=== PATIENT | female | born 1995 | race Caucasian/White ===

== ENCOUNTER 2018-11-17 14:44 | Emergency (ER) | payer SELFPAY ==
[2018-11-17 15:07] VITALS: BP 141/105
[2018-11-17] MEDS ORDERED: LIDOCAINE 2%/EPI 1:100,000 20 ML VIAL. ONE (15:09)
[2018-11-17] MEDS ORDERED: CLINDAMYCIN HCL 150 MG CAPSULE ONE (15:09)
--- NOTE | 2018-11-17 15:12 | PHYS DOC ---
Past History Past Medical History: No Pertinent History Past Surgical History: Other Smoking: Non-smoker Alcohol Use: Occasionally Drug Use: None Adult General Chief Complaint Chief Complaint: SKIN PROBLEM HPI HPI 23-year-old female presents with swelling and tenderness to right inner mid thigh which is been ongoing for the past 3 weeks. Patient reports symptoms have become worse. Denies any fever or chills. Denies known trauma. Denies . Review of Systems Review of Systems Constitutional: Denies fever or chills Eyes: Denies redness or eye pain HENT: Denies nasal congestion or sore throat Respiratory: Denies cough or shortness of breath Cardiovascular: Denies chest pain or palpitations GI: Denies abdominal pain, nausea, or vomiting : Denies dysuria or hematuria Musculoskeletal: Denies back pain or joint pain Integument: Reports right medial thigh swelling, tenderness, and erythema Neurologic: Denies headache, focal weakness or sensory changes Complete systems were reviewed and found to be within normal limits, except as documented in this note. Current Medications Current Medications Current Medications Medications (Trade) Dose Ordered Sig/Leda Start Time Stop Time Status Last Admin Dose Admin Clindamycin HCl (Cleocin) 300 mg 1X ONCE 11/17/18 15:15 11/17/18 15:16 UNV Lidocaine/ Epinephrine (Xylocaine 2%-Epi 1:100,000) 20 ml 1X ONCE 11/17/18 15:15 11/17/18 15:16 UNV Allergies Allergies Allergies Coded Allergies Type Severity Reaction Last Updated Verified No Known Drug Allergies 11/17/18 No Physical Exam Physical Exam Constitutional: Well developed, well nourished, no acute distress, non-toxic appearance HENT: Normocephalic, atraumatic, oropharynx moist Eyes: Conjunctiva normal, no discharge Neck: Normal range of motion, supple Cardiovascular: Heart rate normal, regular rhythm Lungs & Thorax: No respiratory distress Skin: Warm, dry, 3cm fluctuance noted to right medial mid thigh with surrounding erythema Extremities: ROM intact, RLE distal pulses and sensation intact Neurologic: Alert and oriented X 3, no focal deficits noted Psychologic: Affect normal, judgement normal Current Patient Data Vital Signs Vital Signs Date Time Temp Pulse Resp B/P (MAP) Pulse Ox O2 Delivery O2 Flow Rate FiO2 11/17/18 15:02 98.2 94 14 141/105 (117) 100 Room Air EKG EKG [] Radiology/Procedures Radiology/Procedures [] Course & Med Decision Making Course & Med Decision Making Patient presents with history of present illness and physical exam consistent for abscess to right medial thigh. I&D performed with iodoform packing placement. Empiric antibiotics initiated. Patient stable for discharge with outpatient follow-up with PCP. Discussed findings and plan with patient and family, who acknowledge understanding and agreement. Dragon Disclaimer Dragon Disclaimer This electronic medical record was generated, in whole or in part, using a voice recognition dictation system. Incision and Drainage Incision and Drainage : Site: right medial thigh Blade Size: 11 I & D Procedure: sterile dressing applied, gauze wick placed (half-inch iodoform gauze) Progress Verbal consent obtained. Time out performed. Hand hygiene utilized. Wound cleaned with ChloraPrep. Anesthesia obtained via a 25-gauge hypodermic needle with (3) mL's of lidocaine 2% with epinephrine. Horizontal incision 1.5cm performed with 11 blade scalpel to middle of fluctuance with immediate purulent discharge noted. Wound explored with curved Deepika clamp. Copious irrigation performed x 200mls. Iodoform gauze packed. Wound dressed with sterile dressing Patient tolerated procedure well and without difficulty. Departure Departure: Impression: Primary Impression: Abscess of right thigh Disposition: HOME, SELF-CARE Condition: STABLE Referrals: PCP,NO (PCP) Patient Instructions: Abscess, Care After Additional Instructions: Do not soak your wound. You may shower. Clean wound daily with soap and water. Change dressing 2 times daily. Use over the counter antibiotic ointment with each dressing change. Scripts Clindamycin Hcl (CLINDAMYCIN HCL) 300 Mg Capsule 1 CAP PO TID for infection for 7 Days, #21 CAP Prov: AIME NIETO DO 11/17/18 AIME NIETO DO Nov 17, 2018 15:12
[2018-11-17] MEDS ORDERED: CLINDAMYCIN HCL 150 MG CAPSULE PO ONE (15:30)
[2018-11-17] MEDS ORDERED: LIDOCAINE 2%/EPI 1:100,000 20 ML VIAL. IJ ONE (15:30)
[2018-11-17] MEDS ORDERED: CLIN300C8 PO (15:34)
== END 2018-11-17 15:40 | disposition home or self-care (01) ==
LOC: ER 14:44
DX: L02.415 Cutaneous abscess of right lower limb (principal)
CPT/HCPCS: 10060; 99283

== ENCOUNTER 2018-11-18 15:19 | Emergency (ER) | payer SELFPAY ==
[~2018-11-18] VITALS: Ht 170.2 cm; Wt 98.9 kg
[~2018-11-18 15:19] MED LIST: CLIN300C8 PO
[2018-11-18 15:35] VITALS: BP 143/89
--- NOTE | 2018-11-18 15:42 | PHYS DOC ---
Past History Past Medical History: No Pertinent History Past Surgical History: Other Smoking: Non-smoker Alcohol Use: Occasionally Drug Use: None Adult General Chief Complaint Chief Complaint: WOUND CHECK [facility] HPI Patient is a [age] year old [sex] who presents with [] Review of Systems Review of Systems Constitutional: Denies fever or chills [] Eyes: Denies change in visual acuity, redness, or eye pain [] HENT: Denies nasal congestion or sore throat [] Respiratory: Denies cough or shortness of breath [] Cardiovascular: No additional information not addressed in HPI [] GI: Denies abdominal pain, nausea, vomiting, bloody stools or diarrhea [] : Denies dysuria or hematuria [] Musculoskeletal: Denies back pain or joint pain [] Integument: Denies rash or skin lesions [] Neurologic: Denies headache, focal weakness or sensory changes [] Endocrine: Denies polyuria or polydipsia [] All other systems were reviewed and found to be within normal limits, except as documented in this note. Allergies Allergies Allergies Coded Allergies Type Severity Reaction Last Updated Verified No Known Drug Allergies 11/17/18 No Physical Exam Physical Exam Constitutional: Well developed, well nourished, no acute distress, non-toxic appearance. [] HENT: Normocephalic, atraumatic, bilateral external ears normal, oropharynx moist, no oral exudates, nose normal. [] Eyes: PERRLA, EOMI, conjunctiva normal, no discharge. [] Neck: Normal range of motion, no tenderness, supple, no stridor. [] Cardiovascular:Heart rate regular rhythm, no murmur [] Lungs & Thorax: Bilateral breath sounds clear to auscultation [] Abdomen: Bowel sounds normal, soft, no tenderness, no masses, no pulsatile masses. [] Skin: Warm, dry, no erythema, no rash. [] Back: No tenderness, no CVA tenderness. [] Extremities: No tenderness, no cyanosis, no clubbing, ROM intact, no edema. [] Neurologic: Alert and oriented X 3, normal motor function, normal sensory function, no focal deficits noted. [] Psychologic: Affect normal, judgement normal, mood normal. [] EKG EKG [] Radiology/Procedures Radiology/Procedures [] Course & Med Decision Making Course & Med Decision Making Pertinent Labs and Imaging studies reviewed. (See chart for details) [] Dragon Disclaimer Dragon Disclaimer This electronic medical record was generated, in whole or in part, using a voice recognition dictation system. Departure Departure: Impression: Primary Impression: Encounter for abscess packing removal Disposition: HOME, SELF-CARE Condition: STABLE Referrals: PCP,NO (PCP) Patient Instructions: Abscess, Care After Additional Instructions: Continue to use previously prescribed antibiotics as directed Use over the counter Tylenol and Ibuprofen for pain and discomfort. Do not soak your wound. You may shower. Clean wound daily with soap and water. Change dressing 2 times daily. Use over the counter antibiotic ointment with each dressing change. AIME NIETO DO Nov 18, 2018 15:42
[2018-11-18] MEDS ORDERED: NEOMY/BACITR/POLYMYXIN OINT PACKET. TP ONE (15:45)
== END 2018-11-18 16:00 | disposition home or self-care (01) ==
LOC: ER 15:19
DX: Z48.01 Encounter for change or removal of surgical wound dressing (principal); L02.416 Cutaneous abscess of left lower limb
CPT/HCPCS: 99281

== ENCOUNTER 2020-11-11 09:38 | Emergency (ER) | payer SELFPAY ==
[~2020-11-11] VITALS: Ht 165.1 cm; Wt 97.9 kg
[~2020-11-11 09:38] MED LIST changes: +CLIN-95 PO; -CLIN300C8 PO
--- NOTE | 2020-11-11 10:33 | PHYS DOC ---
Past History Past Medical History: No Pertinent History (RADHA GREENE) Past Surgical History: Other Additional Past Surgical Histo: l shoulder (RADHA GREENE) Smoking: Non-smoker Alcohol Use: Occasionally Drug Use: None (RADHA GREENE) General Adult EDM: Chief Complaint: VAGINAL BLEEDING HPI: HPI: Patient is a 25 year old female A0 who presents with vaginal bleeding that began last night. Patient states she had 3+ tests 2 weeks ago, but began having heavy vaginal bleeding last night. Patient states that she has filled a tampon every hour since onset. Patient reports associated pelvic cramping 06/14. Patient is in a monogamous relationship with her , whom she has been to for 3 years. She denies history of STIs including gonorrhea, chlamydia, syphilis, herpes. After her bleeding began, patient states that she did take a Benadryl at about 2300 last night in order to get to sleep. She has not been to her broom builder yet to confirm . Patient denies lateralized pelvic pain, sudden onset of pain, dysuria. Patient has no other complaints at this time. (RADHA GREENE) Review of Systems: Review of Systems: Constitutional: Denies fever or chills Respiratory: Denies cough or shortness of breath Cardiovascular: Denies chest pain or edema GI: Denies abdominal pain, nausea, vomiting, bloody stools or diarrhea : See HPI Musculoskeletal: Denies back pain or joint pain Integument: Denies rash or other skin lesions Neurologic: Denies headache, focal weakness or sensory changes (RADHA GREENE) Allergies: Allergies: Allergies Coded Allergies Type Severity Reaction Last Updated Verified No Known Drug Allergies 11/11/20 No (RADHA GREENE) Physical Exam: PE: Constitutional: Well developed, well nourished, no acute distress, non-toxic appearance. Cardiovascular:Heart rate regular rhythm, no murmur. Lungs & Thorax: Bilateral breath sounds clear to auscultation. Abdomen: Bowel sounds normal, soft, no tenderness, no suprapubic tenderness, no masses, no pulsatile masses. Skin: Warm, dry, no erythema, no rash. Neurologic: Alert and oriented x3, normal motor function, normal sensory function, no focal deficits noted. Psychologic: Affect normal, judgement normal, mood normal. (RADHA GREENE) Current Patient Data: Vital Signs: Vital Signs Date Time Temp Pulse Resp B/P (MAP) Pulse Ox O2 Delivery O2 Flow Rate FiO2 11/11/20 09:50 98.4 99 16 142/94 (110) 99 Room Air (RADHA GREENE) Radiology/Procedures: Radiology/Procedures: PROCEDURE: OB <14 WKS W/TV EXAM: Obstetrics sonogram. HISTORY: Vaginal bleeding. TECHNIQUE: Transabdominal and transvaginal sonographic imaging of the pelvis was performed. COMPARISON: None. FINDINGS: The uterus measures 9.0 x 5.0 x 4.7 cm. No intrauterine gestational sac is seen. There is a heterogeneous thickened endometrial stripe measuring 2.1 cm. There is no pelvic free fluid. The right ovary is obscured due to bowel gas. No adnexal mass or cyst is seen. The left ovary is normal in size and demonstrate normal blood flow. IMPRESSION: 1. No intrauterine gestational sac. There is no beta-hCG level at the time of dictation for correlation. Correlate with serial beta-hCG levels to confirm and appropriate increasing levels. 2. Obscured right ovary. The left ovary is unremarkable. 3. Thickened endometrium. Electronically signed by: Nohemy Brownlee MD (11/11/2020 11:49 AM) [id number] (RADHA GREENE) Heart Score: C/O Chest Pain: No (RADHA GREENE) Course & Med Decision Making: Course & Med Decision Making Pertinent Labs and Imaging studies reviewed. (See chart for details) Patient had 3+ at home test, but did not visit broom builder to confirm . Transvaginal ultrasound will be ordered today. Ultrasound at this time does not show a gestational sac or retained products of conception. Serum beta hCG correlates to gestation of about 4 to 5 weeks. Patient and her mother at bedside are made aware of lab work as well as ultrasound findings. At this time, patient does not have a primary care provider or an broom builder, so referrals for both will be given. Patient understands and is agreeable to follow-up instructions. (RADHA GREENE) Dragon Disclaimer: Dragon Disclaimer: This electronic medical record was generated, in whole or in part, using a voice recognition dictation system. (RADHA GREENE) Attending Co-Sign The patient was seen and interviewed as well as examined at the bedside. The chart was reviewed. The case was discussed. Agree with the plan of care. (RICHARD CONCEPCION DO) Departure Departure: Impression: Primary Impression: Complete miscarriage Additional Impression: Hyperglycemia, unspecified Disposition: HOME / SELF CARE / HOMELESS Condition: STABLE Referrals: PCP,YARON (PCP) LOLIS BASHIR MD, MICHAEL B MD Patient Instructions: Hyperglycemia, [id number], Miscarriage, [id number] Additional Instructions: Your work-up today shows a complete miscarriage of a dated about 4 to 5 weeks. You will need to follow-up with an broom builder for further management and instruction. Should she feel the need for psychological or therapy services, resources were provided to you today. Please return to the emergency department if you develop a fever, increased pelvic pain, or if your bleeding does not stop. Additionally, your blood sugar was elevated today. This could be due to recent ingestion of high sugar or high carb foods, however you should follow-up with your primary care doctor for further testing. RADHA GREENE Nov 11, 2020 10:32 RICHARD CONCEPCION DO Nov 17, 2020 10:34
[2020-11-11 11:01] LABS: CALCIUM 9.8 mg/dL (8.5-10.1); CREATININE 0.6 mg/dL (0.6-1.0); GFR 121.8; POTASSIUM 3.7 mmol/L (3.5-5.1)
[2020-11-11 11:03] LABS: BASO % 0 % (0-3); EOS # 0.2 x10^3/uL (0.0-0.7); EOS % 2 % (0-3); HEMATOCRIT 37.4 % (36.0-47.0); HEMOGLOBIN 11.9 g/dL (12.0-15.5); LYMPH # 1.6 x10^3/uL (1.0-4.8); LYMPH % 14 % (24-48); MEAN CORPUSCULAR HEMOGLOBIN 24 pg (25-35); MEAN CORPUSCULAR HGB CONC 32 g/dL (31-37); MEAN CORPUSCULAR VOLUME 77 fL (79-100); MONO # 0.4 x10^3/uL (0.0-1.1); MONO % 3 % (0-9); NEUT # 9.1 x10^3uL (1.8-7.7); NEUT % 80 % (31-73); PLATELET COUNT 362 x10^3/uL (140-400); RED BLOOD COUNT 4.85 x10^6/uL (3.50-5.40); RED CELL DISTRIBUTION WIDTH 15.7 % (11.5-14.5); WHITE BLOOD COUNT 11.3 x10^3/uL (4.0-11.0)
[2020-11-11 11:14] LABS: BACTERIA,URINE 0 /HPF (0-FEW); BILIRUBIN,URINE NEG (NEG); CLARITY,URINE HAZY; COLOR,URINE YELLOW; GLUCOSE,URINE >=1000 mg/dL (NEG); NITRITE,URINE NEG (NEG); UROBILINOGEN,URINE 0.2 mg/dL (0.2 mg/dL)
[2020-11-11 11:15] LABS: SQUAMOUS EPITHELIAL CELL,UR MOD /LPF
--- NOTE | 2020-11-11 11:51 | RAD ---
EXAM: Obstetrics sonogram. HISTORY: Vaginal bleeding. TECHNIQUE: Transabdominal and transvaginal sonographic imaging of the pelvis was performed. COMPARISON: None. FINDINGS: The uterus measures 9.0 x 5.0 x 4.7 cm. No intrauterine gestational sac is seen. There is a heterogeneous thickened endometrial stripe measuring 2.1 cm. There is no pelvic free fluid. The righ t ovary is obscured due to bowel gas. No adnexal mass or cyst is seen. The left ovary is normal in si ze and demonstrate normal blood flow. IMPRESSION: 1. No intrauterine gestational sac. There is no beta-hCG level at the time of dictation for correlati on. Correlate with serial beta-hCG levels to confirm and appropriate increasing levels. 2. Obscured right ovary. The left ovary is unremarkable. 3. Thickened endometrium. Electronically signed by: Nohemy Brownlee MD (11/11/2020 11:49 AM) [id number]
[2020-11-11 12:05] VITALS: BP 145/75
== END 2020-11-11 12:24 | disposition home or self-care (01) ==
LOC: ER 09:38
DX: O03.4 Incomplete spontaneous abortion without complication (principal); R73.9 Hyperglycemia, unspecified; Z3A.01 Less than 8 weeks gestation of pregnancy
CPT/HCPCS: 36415; 76801; 76817; 80048; 81001; 81025; 84702; 85025; 87086; 87147; 99285-25